=== PATIENT | female | born 1945 | race Caucasian/White ===

== ENCOUNTER → 2017-11-06 | Outpatient (CLI) | payer OTHER, MEDICARE | END | disposition home or self-care (01) | LOC: SHCH 08:48 | PROVIDERS: ATTEND Internal Medicine Cardiovascular Disease | DX: R06.00 Dyspnea, unspecified (principal) | CPT/HCPCS: 93306 ==

== ENCOUNTER → 2024-08-24 | Outpatient (CLI) | payer MEDICARE | END | disposition home or self-care (01) | LOC: RAH 10:59 | PROVIDERS: ATTEND Family Medicine | DX: N63.11 Unspecified lump in the right breast, upper outer quadrant (principal); N64.89 Other specified disorders of breast | CPT/HCPCS: 76641; 77066 ==

== ENCOUNTER → 2024-09-14 | Outpatient (CLI) | payer MEDICARE ==
--- NOTE | 2024-09-14 09:36 | HMCIMG ---
US BREAST BX 1ST LESION IR HISTORY: Right breast mass COMPARISON: None TECHNIQUE: Informed consent was obtained. Risks and benefits were explained to the patient. A timeout was performed. Patient was prepped and draped in a sterile fashion. Local anesthetics was given as required. Under ultrasound guidance, right breast mass at 11:00 was localized. Ultrasound guidance core biopsy was performed with 14-gauge Bard biopsy gun with coaxial arrangement. Microsurgical clip was left in place after the biopsy. FINDINGS: 3 core biopsy specimens were obtained. Patient tolerated procedure without complication. Patient left the department in good condition. IMPRESSION: 1. Uncomplicated ultrasound guidance right breast mass core biopsy with microsurgical clip placement.
== END | disposition home or self-care (01) ==
LOC: RAH 10:00
PROVIDERS: ATTEND Family Medicine
DX: N63.11 Unspecified lump in the right breast, upper outer quadrant (principal); C50.911 Malignant neoplasm of unspecified site of right female breast; I10 Essential (primary) hypertension; E78.5 Hyperlipidemia, unspecified
CPT/HCPCS: 19083; 88361; 88305; A4215 ×2; A4648

== ENCOUNTER → 2024-11-16 | Outpatient (CLI) | payer MEDICARE ==
--- NOTE | 2024-11-17 10:34 | HMCIMG ---
NM BONE SCAN WHOLE BODY REASON: RT breast cancer. COMPARISON: None TECHNIQUE: Total body bone imaging study was performed with 22 mCi of the above. FINDINGS: Degenerative changes are seen with increased activities in the shoulders, ankles and spine. No scintigraphic evidence of bone metastases is seen. IMPRESSION: Findings at described above.
== END | disposition home or self-care (01) ==
LOC: RAH 12:51
PROVIDERS: ATTEND Internal Medicine Hematology & Oncology
DX: C50.411 Malignant neoplasm of upper-outer quadrant of right female breast (principal); M19.071 Primary osteoarthritis, right ankle and foot; M19.011 Primary osteoarthritis, right shoulder
CPT/HCPCS: 78306; A9503